=== PATIENT | female | born 1950 | race Caucasian/White ===

== ENCOUNTER 2018-12-25 11:06 | Emergency (ER) | payer BC ==
[2018-12-25] MEDS ORDERED: ZOFRAN ODT 4 MG ONE ×3 (11:13→14:18)
[2018-12-25] MEDS ORDERED: Hydromorphone 1 mg/ml Ampule ONE ×2 (11:13→12:37)
--- NOTE | 2018-12-25 11:13 | ERPHSYRPT ---
- History of Present Illness Time Seen by Provider: 12/25/18 11:13 Source: patient Exam Limitations: no limitations Physician History: 68 y/o right handed white female fell onto right upper ext, [employer], while walking her dog. pt slipped and tripped falling onto concrete. no head injury, no neck injury. Occurred: just prior to arrival Method of Injury: fell Quality: constant, aching, throbbing Severity of Pain-Max: moderate Severity of Pain-Current: moderate Extremities Pain Location: arm: right, elbow: right, forearm: right Modifying Factors: Improves With: movement Associated Symptoms: none Allergies/Adverse Reactions: No Known Drug Allergies Allergy (Verified 12/25/18 11:23) Home Medications: Carvedilol 12.5 mg [Coreg 12.5 mg] 12.5 mg PO DAILY 12/25/18 [History] Liraglutide [Victoza 2-Esteban] 1.8 mg SQ DAILY 12/25/18 [History] Losartan/Hydrochlorothiazide [Losartan-Hctz 100-25 mg Tab] 1 each PO DAILY 12/25 [History] - Review of Systems Constitutional: No Symptoms Eyes: No Symptoms Ears, Nose, & Throat: No Symptoms Respiratory: No Symptoms Cardiac: No Symptoms Abdominal/Gastrointestinal: No Symptoms Genitourinary Symptoms: No Symptoms Musculoskeletal: Fall, Injury, Joint Pain Skin: No Symptoms Neurological: No Symptoms Psychological: No Symptoms Endocrine: No Symptoms Hematologic/Lymphatic: No Symptoms All Other Systems: Reviewed and Negative - Past Medical History Neurological History: No Pertinent History ENT History: No Pertinent History Cardiac History: No Pertinent History Respiratory History: No Pertinent History Endocrine Medical History: No Pertinent History Musculoskeletal History: No Pertinent History GI Medical History: No Pertinent History History: No Pertinent History Psycho-Social History: No Pertinent History Female Reproductive Disorders: No Pertinent History - Past Surgical History Neuro Surgical History: No Pertinent History Cardiac: No Pertinent History Respiratory: No Pertinent History Gastrointestinal: No Pertinent History Genitourinary: No Pertinent History Musculoskeletal: No Pertinent History Female Surgical History: No Pertinent History - Nursing Vital Signs Nursing Vital Signs: Initial Vital Signs Temperature 98.1 F 12/25/18 11:10 Pulse Rate 72 12/25/18 11:10 Respiratory Rate 28 H 12/25/18 11:10 Blood Pressure 210/130 12/25/18 11:10 O2 Sat by Pulse Oximetry 98 12/25/18 11:10 Pain Scale Pain Intensity 8 - Physical Exam General Appearance: moderate distress, alert, anxiety Eyes, Ears, Nose, Throat Exam: normal ENT inspection, moist mucous membranes Neck Exam: normal inspection, non-tender, supple, full range of motion Cardiovascular/Respiratory Exam: chest non-tender Abdominal Exam: non-tender Back Exam: normal inspection, normal range of motion, No CVA tenderness, No vertebral tenderness Shoulder Exam: normal inspection, non-tender, no evidence of injury, normal ROM Elbow/Forearm Exam: deformity, limited ROM, pain (right) Wrist Exam: normal inspection, non-tender, no evidence of injury, normal ROM Hand Exam: normal inspection, non-tender, no evidence of injury, ecchymosis Neuro/Tendon Exam: normal sensation, responds to pain Mental Status Exam: alert, oriented x 3, cooperative Skin Exam: normal color, warm, dry SpO2 Interpretation: normal O2 Delivery: Room Air Procedures - Joint Reduction Timeout: Performed Joint Reduction Site: Right, elbow Conscious Sedation: Yes Reduction Attempts: 1 Pre-Procedure Neurovascular Exam: neurovascular intact Post Procedure Neurovascular Exam: neurovascular intact, good alignment Post Joint Reduction Film: fracture seen - Course Nursing assessment & vital signs reviewed: Yes Ordered Tests: Active Orders 24 hr Category Date Time Status IV Insertion STAT Care 12/25/18 12:26 Active ELBOW (2 VIEW) Routine Exams 12/25/18 13:12 Ordered ELBOW (MINIMUM 3 VIEWS) Stat Exams 12/25/18 11:13 Completed FOREARM Stat Exams 12/25/18 11:13 Completed HUMERUS Stat Exams 12/25/18 11:13 Completed BMP Stat Lab 12/25/18 12:29 Ordered CBC Stat Lab 12/25/18 12:29 Ordered Medication Summary Generic Name Dose Route Start Last Admin Trade Name Freq PRN Reason Stop Dose Admin Sodium Chloride 1,000 mls @ 100 mls/hr 12/25/18 13:00 12/25/18 12:55 Sodium Chloride 0.9% 1000 Ml IV 01/24/19 12:59 100 mls/hr .Q10H CARRIE Administration Discontinued Medications Generic Name Dose Route Start Last Admin Trade Name Freq PRN Reason Stop Dose Admin Etomidate 10 mg 12/25/18 12:49 12/25/18 13:06 Amidate 20 Mg/10 Ml IV 12/25/18 12:50 10 mg STAT ONE Administration Hydromorphone HCl Confirm 12/25/18 11:13 Hydromorphone 1 Mg/Ml Ampule Administered 12/25/18 11:14 Dose 1 mg .ROUTE .STK-MED ONE Hydromorphone HCl 1 mg 12/25/18 11:14 12/25/18 11:25 Hydromorphone 1 Mg/Ml Ampule IM 12/25/18 11:15 1 mg STAT ONE Administration Hydromorphone HCl 0.5 mg 12/25/18 12:26 12/25/18 12:44 Hydromorphone 1 Mg/Ml Ampule IV 12/25/18 12:27 0.5 mg STAT ONE Administration Hydromorphone HCl Confirm 12/25/18 12:37 Hydromorphone 1 Mg/Ml Ampule Administered 12/25/18 12:38 Dose 1 mg .ROUTE .STK-MED ONE Sodium Chloride Confirm 12/25/18 12:52 Sodium Chloride 0.9% 1000 Ml Administered 12/25/18 12:53 Dose 1,000 mls @ ud .ROUTE .STK-MED ONE Lorazepam 0.5 mg 12/25/18 12:28 12/25/18 12:42 Ativan 2 Mg/1 Ml Vial IV 12/25/18 12:29 0.5 mg STAT ONE Administration Lorazepam Confirm 12/25/18 12:37 Ativan 2 Mg/1 Ml Vial Administered 12/25/18 12:38 Dose 2 mg .ROUTE .STK-MED ONE Ondansetron HCl Confirm 12/25/18 11:13 Zofran Odt 4 Mg Administered 12/25/18 11:14 Dose 4 mg .ROUTE .STK-MED ONE Ondansetron HCl 4 mg 12/25/18 11:14 12/25/18 11:25 Zofran Odt 4 Mg PO 12/25/18 11:15 4 mg STAT ONE Administration Lab/Rad Data: Laboratory Result Diagrams 12/25/18 12:25 Laboratory Results 12/25/18 Range/Units 12:25 Sodium 138 (137-145) mmol/L Potassium 3.3 L (3.5-5.1) mmol/L Chloride 105 (98-107) mmol/L Carbon Dioxide 28 (22-30) mmol/L Anion Gap 8.6 (5-15) MEQ/L BUN 17 (7-17) mg/dL Creatinine 0.69 (0.52-1.04) mg/dL Estimated GFR > 60.0 ML/MIN Glucose 135 H (74-106) mg/dL Calcium 9.1 (8.4-10.2) mg/dL - Progress Progress: improved Progress Note: 12/25/18 13:18 pre reduction xray right elbow-complete elbow dislocation with humerus. dislocated anteriorly with comminuted radial head fx. [address] Jiménez [facility] orthopedic surgeon. i reviewed pt hx, condition, clinical and radiographic findings. he recommends reduction here in this ED, splint and sling. Pt is to go to [facility] fracture walk in clinic any morning this week 8-10am. phone # [phone] Counseled pt/family regarding: diagnosis, need for follow-up, rad results - Departure Departure Disposition: Home Clinical Impression: HTN (hypertension), Fracture dislocation of elbow joint Condition: Stable Critical Care Time: Yes Critical Care Time(excluding separately billable procedures): 30-74 minutes Referrals: TIAGO LOVE MD [Primary Care Provider] - Additional Instructions: keep right elbow in splint and sling until further management by [facility] Fracture clinic. Prescriptions: Oxycodone HCl/Acetaminophen [Percocet 5-325 mg Tablet] 1 each PO Q6H PRN PRN # 12 tablet MDD 4 PRN Reason: Pain
[2018-12-25] MEDS ORDERED: Hydromorphone 1 mg/ml Ampule IM ONE (11:14)
[2018-12-25] MEDS ORDERED: ZOFRAN ODT 4 MG PO ONE ×2 (11:14→14:18)
--- NOTE | 2018-12-25 12:25 | XRAY ---
Indication: Pain following fall. Comparison: None 2 views of the right humerus interpreted with same day elbow and forearm exam demonstrates complete elbow dislocation with humerus dislocated anteriorly with comminuted radial head fracture and soft tissue swelling. Elsewhere mild osteopenia and mild AC degenerative arthropathy. No other bony, articular, or soft tissue abnormalities.
[2018-12-25] MEDS ORDERED: Hydromorphone 1 mg/ml Ampule IV ONE (12:26)
--- NOTE | 2018-12-25 12:27 | XRAY ---
Indication: Pain following fall. Comparison: None 2 views of the right forearm interpreted with same day humerus and elbow exam demonstrates complete elbow dislocation with humerus dislocated anteriorly with comminuted radial head fracture and soft tissue swelling. Elsewhere mild osteopenia. No other bony, articular, or soft tissue abnormalities.
[2018-12-25] MEDS ORDERED: Ativan 2 MG/1 ML VIAL IV ONE (12:28)
--- NOTE | 2018-12-25 12:29 | XRAY ---
Indication: Pain following fall. Comparison: None 2 views of the right elbow interpreted with same day humerus and forearm exam demonstrates complete elbow dislocation with humerus dislocated anteriorly with comminuted radial head fracture and soft tissue swelling. Also mild osteopenia. No other bony, articular, or soft tissue abnormalities.
[2018-12-25] MEDS ORDERED: Ativan 2 MG/1 ML VIAL ONE (12:37)
[2018-12-25] MEDS ORDERED: Amidate 20 MG/10 ML IV ONE (12:49)
[2018-12-25] MEDS ORDERED: Sodium Chloride 0.9% 1000 ML 1,000 ML ONE (12:52)
[2018-12-25] MEDS ORDERED: Sodium Chloride 0.9% 1000 ML 1,000 ML IV SCH (13:00)
[2018-12-25 13:02] LABS: ANION GAP 8.6 MEQ/L (5-15); BLOOD UREA NITROGEN 17 mg/dL (7-17); CHLORIDE 105 mmol/L (98-107); Calcium 9.1 mg/dL (8.4-10.2); Carbon Dioxide 28 mmol/L (22-30); Creatinine 1 0.69 mg/dL (0.52-1.04); Glucose 135 mg/dL (74-106); Potassium 3.3 mmol/L (3.5-5.1); SODIUM 138 mmol/L (137-145)
[2018-12-25 13:11] LABS: Hematocrit 41.3 % (35-47); Hemoglobin 15.1 gm/dl (12.0-16.0); Mean Cell Volume 87.9 fl (78-100); Mean Corpuscular Hemoglobin 32.1 pg (26-32); Mean Corpuscular Hgb Concent. 36.6 g/dl (32-36); Mean Platelet Volume 9.7 fl (6-9.5); Platelet Count 245 K/mm3 (150-450); White Blood Count 11.4 K/mm3 (4.0-10.5)
[2018-12-25] MEDS ORDERED: LOPRESSOR 5 MG/5 ML INJECTION IV ONE (13:28)
--- NOTE | 2018-12-25 13:45 | XRAY ---
Indication: Post reduction. Comparison: Taken earlier in the day. 2 views of the right elbow demonstrates successful reduction of previous dislocation. Grossly stable comminuted radial head/proximal radius fracture with new displaced capitellum fracture previously obscured.
[2018-12-25 14:23] VITALS: BP 167/72; PULSE 82; O2SAT 98
== END 2018-12-25 14:24 | disposition home or self-care (01) ==
LOC: ED 11:06
DX: S43.014A Anterior dislocation of right humerus, initial encounter (principal); S52.121A Displaced fracture of head of right radius, initial encounter for closed fracture; W01.198A Fall on same level from slipping, tripping and stumbling with subsequent striking against other object, initial encounter; Y93.K1 Activity, walking an animal; Y92.9 Unspecified place or not applicable; I10 Essential (primary) hypertension; Z79.899 Other long term (current) drug therapy
CPT/HCPCS: 24600; 36000; 36415; 73060; 73070; 73080; 73090; 80048; 85027; 96360; 96372; 96374; 96375; 99284; J1170; J2060; Q0162

== ENCOUNTER 2021-06-15 12:52 | Day surgery (SDC) | payer MEDICARE, OTHER ==
--- NOTE | 2021-06-15 08:26 | HP ---
DATE OF SURGERY: 06/15/2021 HISTORY OF PRESENT ILLNESS: The patient is a 71-year-old with enlarging subcutaneous mass or nodule increasing in size over the years, worse six months with increasing symptomatic shoulder aches and pains on the back of her head when she turns her head. Increasing size, increasingly symptomatic, she desires definitive excision. PAST MEDICAL HISTORY: Diabetes mellitus type II, hypertension. PAST SURGICAL HISTORY: Tubal in the past. Fractured elbow in the past. MEDICATIONS: Carvedilol, losartan, montelukast, vitamin D2, Ozempic, Xyzal, simvastatin for some hyperlipidemia. ALLERGIES: NKDA. FAMILY HISTORY: Heart disease, hypertension. SOCIAL HISTORY: Denies smoking, reports minimal alcohol use. REVIEW OF SYSTEMS: Fourteen systems reviewed per admission assessment. No chest pain or palpitations. Other systems negative or noncontributory as above and per preadmission questionnaire. PHYSICAL EXAMINATION: GENERAL: No acute distress. HEENT: Sclerae nonicteric. NECK: Posterior neck subcutaneous mass probable lipoma. No JVD. CHEST: Clear to auscultation. CVS: Regular rate and rhythm. ABDOMEN: Soft. EXTREMITIES: No cyanosis. NEURO: Alert, moving extremities symmetrically. PSYCH: Appropriate mood and affect. IMPRESSION: Enlarging subcutaneous posterior neck mass or lipoma. I feel the patient will benefit from excision. Risks and benefits explained in detail including but not limited to bleeding or infection, risk of hematoma or seroma formation, risk of wound dehiscence possibly requiring packing, general risk of aches, pains, burning or numbness possible long-term or chronic in nature. What we excise likely will not recur but she could get similar nodule adjacent to or elsewhere on her neck, back or body. General risk of anesthesia, deep venous thrombosis, pulmonary embolism, or pneumonia but not limited to. Consent obtained, will proceed with excisional biopsy of enlarging posterior neck subcutaneous mass or lipoma as an outpatient.
[~2021-06-15 12:52] MED LIST: Lactated Ringers 1,000 ML IV ONE; Sensorcaine 0.25% 10 ML ONE
[2021-06-15] MEDS ORDERED: Lactated Ringers 1,000 ML IV SCH (13:30)
[2021-06-15] MEDS ORDERED: CEFAZOLIN 2 GM-D5W BAG** 2 GM/50 ML ML IV ONE (13:49)
[2021-06-15] MEDS ORDERED: CEFAZOLIN 2 GM-D5W BAG** 2 GM/50 ML ML IV SCH (14:00)
[2021-06-15] MEDS ORDERED: SUBLIMAZE 100 MCG/2 ML ONE ×2 (14:15→15:51)
[2021-06-15] MEDS ORDERED: Versed 2 MG/2 ML Injection ONE (14:15)
[2021-06-15] MEDS ORDERED: DIPRIVAN 200 MG/20 ML IV ONE (14:15)
[2021-06-15] MEDS ORDERED: Zemuron 100 MG/10 ML ONE (14:34)
[2021-06-15] MEDS ORDERED: BRIDION 200MG/2ML IV ONE (15:21)
[2021-06-15 16:59] VITALS: BP 169/89; PULSE 70; O2SAT 92
--- NOTE | 2021-06-16 09:18 | OP ---
SURGERY DATE/TIME: 06/15/2021 1430 PREOPERATIVE DIAGNOSIS: Enlarging subcutaneous posterior neck mass or lipoma. POSTOPERATIVE DIAGNOSIS: Enlarging subcutaneous posterior neck mass or lipoma. PROCEDURE: Excisional biopsy of posterior neck deep lipoma (approximately 9 cm in size). SURGEON: Dr. Dewey Holden. ANESTHESIA: General. ESTIMATED BLOOD LOSS: Minimal. INDICATIONS: As noted above. Risks and benefits explained in detail and not limited to and consent obtained. DESCRIPTION OF PROCEDURE AND FINDINGS: The patient is taken to the operating room. General anesthesia introduced. She was placed in prone position. Neck is prepped and draped in the usual sterile fashion. After official time out and no disagreement with planned procedure, a transverse incision made. Dissection carried down to subcutaneous tissue circumferentially around this lobulated large lipomatous mass. It was carefully dissected off the underlying fascia and passed off. It measured 9 cm in size. Good hemostasis is noted. The wound is closed with interrupted 3-0 Vicryl closing the deep subcu down to the level of the underlying fascia to reduce the space. Skin closed with 4-0 Vicryl and some interrupted 3-0 Prolene used to reinforce the skin area given the location. Steri-Strips and sterile dressing applied. The patient tolerated the procedure well. There were no immediate complications.
== END 2021-06-15 17:10 | disposition home or self-care (01) ==
LOC: SDC 12:52
PROVIDERS: ATTEND Surgery
DX: D17.0 Benign lipomatous neoplasm of skin and subcutaneous tissue of head, face and neck (principal); Z79.899 Other long term (current) drug therapy
CPT/HCPCS: 88304; J0690; J2250; J2704; J3010